=== PATIENT | female | born 2005 | race Caucasian/White ===

== ENCOUNTER 2024-05-17 14:45 | Emergency (ER) | payer SELFPAY | END 2024-05-17 15:22 | disposition home or self-care (01) | LOC: CSHERS 14:45 | DX: H66.92 Otitis media, unspecified, left ear (principal); H73.892 Other specified disorders of tympanic membrane, left ear; F17.290 Nicotine dependence, other tobacco product, uncomplicated | CPT/HCPCS: 99282 ==